=== PATIENT | male | born 1970 | race Caucasian/White ===

== ENCOUNTER 2017-09-06 20:27 | Emergency (ER) | payer BC, OTHER ==
[2017-09-06 21:13] LABS: #Basophils 0.1 thou/uL (0.0-0.2); #Eosinphils 0.5 thou/uL (0.0-0.7); #Lymphocytes 2.6 thou/uL (1.20-3.40); #Monocytes 1.2 thou/uL (0.11-0.59); #Neutrophils 8.3 thou/uL (1.40-6.50); %Basophils 0.5 % (0.0-1.0); %Eosinophils 3.7 % (0.0-10.0); %Lymphocytes 20.9 % (21.0-51.0); %Monocytes 9.4 % (0.0-10.0); %Neutrophils 65.5 % (42.0-75.0); Mean Corpuscular HGB CONC 34.5 g/dL (32.0-36.0); Mean Corpuscular Hemoglobin 30.2 pg (27.0-31.0); Mean Corpuscular Volume 87.5 fl (80.0-94.0); Mean Platelet Volume 6.1 fL (7.4-10.4); Platelet Count 348 thou/uL (130-400); RBC Distribution Width 12.9 % (11.5-14.5); Red Blood Cell (RBC) Count 5.31 mill/uL (4.70-6.10); White Blood Cell (WBC) Count 12.6 thou/uL (4.8-10.8)
--- NOTE | 2017-09-06 21:36 | RAD ---
ONE VIEW CHEST: 09/06/17 HISTORY: Pain. COMPARISON: None. FINDINGS: Normal cardiac silhouette. The pulmonary vessels and hilum are normal. Costophrenic angles are clear. Lung volumes are diminished likely due to poor inspiratory effect. No consolidation or mass. No pneu mothorax or osseous abnormalities. IMPRESSION: Diminished lung volumes. POS: [facility]
[2017-09-06 21:39] LABS: CKMB 0.8 ng/mL (0-6.6); Troponin I Less than 0.010 ng/mL (< 0.028)
[2017-09-06 21:42] LABS: ALT (SGPT) 48 U/L (8-55); AST (SGOT) 37 U/L (5-34); Albumin 4.1 g/dL (3.5-5.0); Alkaline Phosphatase 74 U/L (40-150); Anion Gap 15 mmol/L (10-20); BUN (Urea Nitrogen) 12 mg/dL (8.9-20.6); Bilirubin, Total 0.4 mg/dL (0.2-1.2); CK (CPK) 110 U/L (30-200); Calc. Creatinine Clearance 0 mL/min (70-130); Calcium 9.6 mg/dL (7.8-10.44); Carbon Dioxide 24 mmol/L (22-29); Chloride 105 mmol/L (98-107); Estimated GFR-MDRD 89; Globulin 3.4 g/dL (2.4-3.5); Glucose 114 mg/dL (70-105); Protein, Total 7.5 g/dL (6.0-8.3); Sodium 140 mmol/L (136-145)
[2017-09-06] MEDS ORDERED: predniSONE 20 MG TAB ONE (23:12)
== END 2017-09-06 23:16 | disposition home or self-care (01) ==
LOC: ERS 20:27
DX: J40 Bronchitis, not specified as acute or chronic (principal)
CPT/HCPCS: 36415; 71045; 80053; 82553; 84484; 85025; 93005; 96360; 96361; J7506; J7620